=== PATIENT | male | born 1975 | race Two or more races ===

== ENCOUNTER 2024-09-02 11:07 | Outpatient (CLI) | payer OTHER | END 2024-09-02 11:20 | disposition home or self-care (01) | LOC: SONOGRAMA 11:07 | PROVIDERS: ATTEND Internal Medicine | DX: N50.9 Disorder of male genital organs, unspecified (principal); N50.819 Testicular pain, unspecified ==

== ENCOUNTER 2024-11-05 12:08 | Outpatient (CLI) | payer OTHER ==
[2024-11-06] MEDS ORDERED: CRESTOR40 MG (10:47)
== END 2024-11-05 12:16 | disposition home or self-care (01) ==
LOC: RAD 12:08
PROVIDERS: ATTEND Surgery
DX: K40.90 Unilateral inguinal hernia, without obstruction or gangrene, not specified as recurrent (principal); Z01.818 Encounter for other preprocedural examination

== ENCOUNTER 2024-11-11 06:01 | Day surgery (SDC) | payer OTHER ==
[2024-11-06 10:48] VITALS: BP 124/77
[~2024-11-11] VITALS: Ht 167.6 cm; Wt 79.4 kg
[~2024-11-11 06:01] MED LIST: CRESTOR40 MG
[2024-11-11] MEDS ORDERED: BUPIVACAINE HCL/MPF 0.5% 30ML VIAL ONE (09:56)
[2024-11-11] MEDS ORDERED: CEFTRIAXONE SODIUM 2,000 MG VIAL ONE (09:56)
[2024-11-11] MEDS ORDERED: METRONIDAZOLE/SODIUM CHLORIDE 500 MG/100 ML PIGGYBACK IV ONE (09:56)
[2024-11-11] MEDS ORDERED: ENOXAPARIN SODIUM 40 MG/0.4 ML SYRINGE SUBCUTANEO ONE (09:56)
[2024-11-11] MEDS ORDERED: SUGAMMADEX SODIUM 200 MG/2 ML VIAL IV ONE (11:28)
[2024-11-11] MEDS ORDERED: NEURONTIN300 MG PO (11:45)
[2024-11-11] MEDS ORDERED: PERCOCET 5-3251 EACH PO (11:45)
[2024-11-11] MEDS ORDERED: POLY119PG PO (11:45)
[2024-11-11] MEDS ORDERED: CELEBREX200MG PO (11:45)
[2024-11-11] MEDS ORDERED: MORPHINE SULFATE 4 MG/ML VIAL IV ONE ×2 (11:50→13:10)
== END 2024-11-11 17:25 | disposition home or self-care (01) ==
LOC: CIR.AMB 06:01
PROVIDERS: ATTEND Surgery
DX: K40.90 Unilateral inguinal hernia, without obstruction or gangrene, not specified as recurrent (principal); J32.9 Chronic sinusitis, unspecified; E78.5 Hyperlipidemia, unspecified
CPT/HCPCS: 49650; C1781

== ENCOUNTER 2025-01-25 08:10 | Outpatient (CLI) | payer OTHER ==
[~2025-01-25 08:10] MED LIST changes: +CELEBREX200MG PO; +NEURONTIN300 MG PO; +PERCOCET 5-3251 EACH PO; +POLY119PG PO
== END 2025-01-25 08:19 | disposition home or self-care (01) ==
LOC: SONOGRAMA 08:10
PROVIDERS: ATTEND Surgery
DX: K80.20 Calculus of gallbladder without cholecystitis without obstruction (principal)